=== PATIENT | male | born 2000 | race Caucasian/White ===

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

== ENCOUNTER 2019-01-09 15:44 | Emergency (ER) | payer BC ==
[2019-01-09 16:13] VITALS: BP 132/78
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
[2019-01-10 11:27] LABS: ABS Eosinophils 0.3 10^3/ul (0-0.6); ABS Lymphocytes 1.9 10^3/ul (1.0-4.8); ABS Monocytes 0.8 10^3/ul (0-0.8); ABS Neutrophils 4.7 10^3/ul (1.5-7.7); Eosinophil % 3.3 %; Hematocrit 49 % (42-52); Hemoglobin 16.7 g/dL (14.0-18.0); Lymphocyte % 24.7 %; Mean Corpuscular HGB Conc 34 g/dL (31-36); Mean Corpuscular Hemoglobin 29 pg (27-31); Mean Corpuscular Volume 86 fL (80-94); Mean Platelet Volume 8.1 fL (7.4-10.4); Nucleated Red Blood Cells % 0.1; Platelet Count 245 10^3/uL (150-450); Red Cell Distribution Width 13 % (10-15); White Blood Count 7.7 10^3/uL (3.5-10.8)
[2019-01-10 11:32] LABS: Albumin 4.8 g/dL (3.2-5.2); Calcium 9.7 mg/dL (8.6-10.3); Potassium 4.1 mmol/L (3.5-5.0); Total Bilirubin 0.9 mg/dL (0.2-1.0)
[2019-01-10 11:38] LABS: Albumin/Globulin Ratio 2.2 (1-3); BUN/Creatinine Ratio 20.2 (8-20); EGFR African American 133.2 (>60); EGFR Non-African American 110.1 (>60); Globulin 2.2 g/dL (2-4)
[2019-01-10 12:19] LABS: HIV 4th Generation Nonreactive (Nonreactive)
[2019-01-11 14:02] LABS: Hepatitis C Antibody Negative (Negative)
[2019-01-11 21:04] LABS: Trichomonas vaginalis SOURCE: Urine (Male Patient)
[2019-01-13 13:30] LABS: Chlamydia trachomatis NAA Negative (Negative); Neisseria gonorrhoeae (GC) NAA Negative (Negative)
== END 2019-01-09 17:14 | disposition home or self-care (01) ==
LOC: UCCORT 15:44
DX: R30.0 Dysuria (principal); F17.290 Nicotine dependence, other tobacco product, uncomplicated; Z70.8 Other sex counseling
CPT/HCPCS: 36415; 80053; 81003; 85025; 86780; 86803; 87389; 87491; 87591; 87661; 99211; G0463

== ENCOUNTER 2019-01-14 14:29 | Emergency (ER) | payer BC ==
[2019-01-14 15:01] VITALS: BP 126/59
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
== END 2019-01-14 16:17 | disposition home or self-care (01) ==
LOC: UCCORT 14:29
DX: R59.0 Localized enlarged lymph nodes (principal); R30.0 Dysuria; L29.0 Pruritus ani; F17.290 Nicotine dependence, other tobacco product, uncomplicated
CPT/HCPCS: 81003; 87086; 99212; G0463

== ENCOUNTER 2019-01-23 23:52 | Emergency (ER) | payer BC ==
--- NOTE | 2019-01-24 02:27 | ED ---
GI/ HPI - HPI Summary HPI Summary: 18-year-old male with no significant past medical history presents to the emergency department today complaining of testicular pain and penile itching and pain with urination 2 weeks. Patient endorses 5/10 testicular "aching pain" and burning with urination. Patient states he is in a monogamous relationship with a consistent sexual partner who is currently asymptomatic. Patient states he uses condoms and does not practice insertive anal sex. He states he otherwise feels well. He denies fever, chest pain, abdominal pain, shortness of breath, rash, penile discharge. Family history and surgical history are noncontributory. - History of Current Complaint Chief Complaint: EDUrogenitalProblems Time Seen by Provider: 01/24/19 02:18 Stated Complaint: TESTICULAR PAIN PER PT Hx Obtained From: Patient Onset/Duration: Started Days Ago Timing: Constant Severity: Moderate Current Severity: Moderate Pain Intensity: 4 Location of Pain: Groin Additional Locations for Males: Penis, Testicles Pain Characteristics: Aching, Burning, Itching Associated Signs and Symptoms: Positive: UTI Symptoms. Negative: Back Pain, Pallor, Nausea, Vomiting, Diarrhea, Fever, Hematuria, Abdominal Pain, New Sexual Partner Aggravating Factor(s): Voiding - Additional Pertinent History Primary Care Physician: [id number] - Allergy/Home Medications Allergies/Adverse Reactions: Allergies Allergy/AdvReac Type Severity Reaction Status Date / Time No Known Allergies Allergy Verified 01/23/19 23:58 PMH/Surg Hx/FS Hx/Imm Hx Endocrine/Hematology History: Denies: Hx Diabetes, Hx Thyroid Disease Cardiovascular History: Denies: Hx Hypertension, Hx Pacemaker/ICD Respiratory History: Reports: Hx Asthma - A CHILD Denies: Hx Chronic Obstructive Pulmonary Disease (COPD) GI History: Reports: Hx Gastroesophageal Reflux Disease Denies: Hx Ulcer History: Denies: Hx Renal Disease Sensory History: Reports: Hx Eye Injury - Patient states ongoing right eye, periodic blurriness, for 2 weeks Denies: Hx Contacts or Glasses, Hx Hearing Aid Opthamlomology History: Reports: Hx Eye Injury - Patient states ongoing right eye, periodic blurriness, for 2 weeks Denies: Hx Contacts or Glasses Neurological History: Reports: Hx Migraine, Hx Seizures - SINCE SEE NOTE / ABSENT SEIZURES Psychiatric History: Reports: Hx Anxiety, Hx Depression Denies: Hx Attention Deficit Hyperactivity Disorder, Hx Eating Disorder, Hx Panic Disorder, Hx Post Traumatic Stress Disorder, Hx Inpatient Treatment, Hx Community Mental Health Tx, Hx Schizophrenia, Hx Bipolar Disorder, Hx Suicide Attempt, Hx of Violent Episodes Against Others, Hx Substance Abuse - Surgical History Surgery Procedure, Year, and Place: 04/29/13 REMOVED A BB from right foot Hx Anesthesia Reactions: No Infectious Disease History: No Infectious Disease History: Reports: History Other Infectious Disease - HSV Denies: Hx Clostridium Difficile, Hx Hepatitis, Hx Human Immunodeficiency Virus (HIV), Hx of Known/Suspected MRSA, Hx Shingles, Hx Tuberculosis, Hx Known/ Suspected VRE, Hx Known/Suspected VRSA, Traveled Outside the [place] in Last 30 Days - Family History Known Family History: Positive: Cardiac Disease - grandfather, Other - SVT and hypothyroidism -- mother, Non-Contributory - Social History Alcohol Use: Occasionally Hx Substance Use: No Substance Use Type: Reports: Marijuana Substance Use Comment - Amount & Last Used: daily Hx Tobacco Use: No Smoking Status (MU): Current Every Day Smoker Type: Cigars Amount Used/How Often: one cigar a day Length of Time of Smoking/Using Tobacco: 7 yrs Have You Smoked in the Last Year: No Review of Systems Constitutional: Negative Eyes: Negative ENT: Negative Cardiovascular: Negative Respiratory: Negative Gastrointestinal: Negative Genitourinary: Negative Musculoskeletal: Negative Skin: Negative Neurological: Negative Psychological: Normal All Other Systems Reviewed And Are Negative: Yes Physical Exam Triage Information Reviewed: Yes Vital Signs On Initial Exam: Initial Vitals Temp Pulse Resp BP Pulse Ox 98.7 F 70 16 127/75 98 01/23/19 23:54 01/23/19 23:54 01/23/19 23:54 01/23/19 23:54 01/23/19 23:54 Vital Signs Reviewed: Yes Appearance: Positive: Well-Appearing, No Pain Distress, Well-Nourished Skin: Positive: Warm, Skin Color Reflects Adequate Perfusion Eyes: Positive: EOMI, JHOANA ENT: Positive: Hearing grossly normal Respiratory/Lung Sounds: Positive: Clear to Auscultation, Breath Sounds Present Cardiovascular: Positive: RRR, S1, S2 Abdomen Description: Positive: Nontender, No Organomegaly, Soft Bowel Sounds: Positive: Present Male Genital Exam: Positive: No Hernia, Epididymal Tenderness, Erythema, Urethral Discharge, Other - Exam chaperoned by Miguel Benjamin, hospital aide. Negative: Lesions Musculoskeletal: Positive: Strength/ROM Intact Neurological: Positive: Sensory/Motor Intact, Alert, Oriented to Person Place, Time, Normal Gait, Speech Normal Psychiatric: Positive: Normal AVPU Assessment: Alert Procedures - Sedation Patient Received Moderate/Deep Sedation with Procedure: No Diagnostics - Vital Signs Vital Signs Temp Pulse Resp BP Pulse Ox 01/24/19 01:15 98.4 F 76 16 134/61 98 01/23/19 23:54 98.7 F 70 16 127/75 98 - Laboratory Lab Statement: Any lab studies that have been ordered have been reviewed, and results considered in the medical decision making process. GIGU Course/Dx - Course Course Of Treatment: Patient was evaluated in the emergency department for testicular pain. Patient seen and examined. Physical exam was suggestive of epididymitis. Patient had positive cremasteric reflex. Testicular ultrasound showed no evidence of torsion and was suggestive for epididymitis. Gonorrhea and chlamydia testing as well as urinalysis were sent to laboratory for evaluation. Patient was treated empirically treated for gonorrhea and chlamydia with 250 mg of ceftriaxone and 1 g of azithromycin. Patient was told to refrain from sexual activity for 10 days and have his partner tested. - Diagnoses Differential Diagnoses - Male: Epididymitis, Testicular Torsion Bad table Discharge ED - Sign-Out/Discharge Documenting (check all that apply): Patient Departure - Discharge Plan Condition: Stable Disposition: HOME Patient Education Materials: Epididymitis (ED) Referrals: Patrick Dolan MD [Primary Care Provider] - 7 Days Additional Instructions: You were seen in the emergency department today and diagnosed with epididymitis. I am not certain what kind of bacteria is causing your symptoms however you were empirically treated in the emergency Department for gonorrhea and Chlamydia. Please refrain from sexual activity for 10 days and follow-up with your primary care doctor for further evaluation and management of symptoms. Please have your partner tested. Please return to the emergency department immediately if you develop any new or worsening symptoms. We will call you if your cultures return positive for gonorrhea and chlamydia. - Billing Disposition and Condition Condition: STABLE Disposition: Home
[2019-01-24] MEDS ORDERED: cefTRIAXone VIAL(*) 250 MG VIAL IM ONE (02:28)
[2019-01-24] MEDS ORDERED: Lidocaine 1% MPF ** 5 ML VIAL IM ONE (02:28)
[2019-01-24] MEDS ORDERED: Azithromycin TAB* 250 MG PO ONE (02:28)
[2019-01-24 02:42] LABS: Urine Appearance Clear; Urine Bilirubin Negative (Negative); Urine Blood Negative (Negative); Urine Color Yellow; Urine Glucose Negative (Negative); Urine Ketones Negative (Negative); Urine Nitrite Negative (Negative); Urine Protein Negative (Negative); Urine Specific Gravity 1.025 (1.010-1.030); Urine Urobilinogen Negative (Negative)
[2019-01-24 03:17] VITALS: BP 120/65
[2019-01-24 13:59] LABS: Chlamydia trachomatis NAA Negative (Negative); Neisseria gonorrhoeae (GC) NAA Negative (Negative)
== END 2019-01-24 03:15 | disposition home or self-care (01) ==
LOC: ED 23:52
DX: N45.1 Epididymitis (principal); K21.9 Gastro-esophageal reflux disease without esophagitis; F17.290 Nicotine dependence, other tobacco product, uncomplicated
CPT/HCPCS: 76870; 81003; 87491; 87591; 96372; 99282; A9270-GY; J0696

== ENCOUNTER 2019-02-10 08:17 | Emergency (ER) | payer BC ==
--- NOTE | 2019-02-10 08:42 | ED ---
Syncope/Near Syncope - HPI Summary HPI Summary: Patient is a 18 y/o M presenting to the ED for a chief complaint of syncope around 07:00 on 02/10/19. Patient states that he was walking to get a glass of water when he suddenly felt chest pain and had a syncopal episode. After the syncopal episode, he felt fatigued. Over the last month, patient has noticed lightheadedness, blurred vision, nausea, generalized body aches, and shortness of breath. He also describes an occasional warm sensation that starts on the bottom of his right foot up to his right calf, and a stinging sensation in his nose as if he is "about to sneeze." Patient denies nasal congestion or cough. He believes he has a sinus infection. He denies positive sick contact with anyone that has similar symptoms. He does admit a similar syncopal episode one month ago. Patient is unsure if he had an influenza vaccination this season. He denies taking any OTC medications for his symptoms. PMHx is significant for anxiety and depression. He admits marijuana use daily and alcohol use occasionally, but he denies tobacco use. Last marijuana use was on 02/09/19. 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 Allergies noted. Medications reviewed. - History Of Current Complaint Chief Complaint: EDSyncope Time Seen by Provider: 02/10/19 08:32 Hx Obtained From: Patient Onset/Duration: Sudden Onset, Resolved Timing: Weeks Context: Loss Of Consciousness Activity At Onset: At Rest Aggravating Factor(s): Nothing Alleviating Factor(s): Spontaneous Resolution Associated Signs And Symptoms: Chest Pain - Resolved, Lightheadedness, Pain - Generalized body aches, Shortness Of Breath - Allergies/Home Medications Allergies/Adverse Reactions: Allergies Allergy/AdvReac Type Severity Reaction Status Date / Time No Known Allergies Allergy Verified 02/10/19 08:22 Home Medications: Home Medications NK [No Home Medications Reported] 02/10/19 [History Confirmed 02/10/19] PMH/Surg Hx/FS Hx/Imm Hx Previously Healthy: Yes Endocrine/Hematology History: Denies: Hx Diabetes, Hx Thyroid Disease Cardiovascular History: Denies: Hx Hypertension, Hx Pacemaker/ICD Respiratory History: Reports: Hx Asthma - A CHILD Denies: Hx Chronic Obstructive Pulmonary Disease (COPD) GI History: Reports: Hx Gastroesophageal Reflux Disease Denies: Hx Ulcer History: Denies: Hx Renal Disease Sensory History: Reports: Hx Eye Injury - Patient states ongoing right eye, periodic blurriness, for 2 weeks Denies: Hx Contacts or Glasses, Hx Legally Blind, Hx Deafness, Hx Hearing Aid Opthamlomology History: Reports: Hx Eye Injury - Patient states ongoing right eye, periodic blurriness, for 2 weeks Denies: Hx Contacts or Glasses, Hx Legally Blind EENT History: Denies: Hx Deafness Neurological History: Reports: Hx Migraine, Hx Seizures - SINCE SEE NOTE / ABSENT SEIZURES Psychiatric History: Reports: Hx Anxiety, Hx Depression Denies: Hx Attention Deficit Hyperactivity Disorder, Hx Eating Disorder, Hx Panic Disorder, Hx Post Traumatic Stress Disorder, Hx Inpatient Treatment, Hx Community Mental Health Tx, Hx Schizophrenia, Hx Bipolar Disorder, Hx Suicide Attempt, Hx of Violent Episodes Against Others, Hx Substance Abuse - Surgical History Surgical History: Yes Surgery Procedure, Year, and Place: 04/29/13 REMOVED A BB from right foot Hx Anesthesia Reactions: No Infectious Disease History: No Infectious Disease History: Reports: History Other Infectious Disease - HSV Denies: Hx Clostridium Difficile, Hx Hepatitis, Hx Human Immunodeficiency Virus (HIV), Hx of Known/Suspected MRSA, Hx Shingles, Hx Tuberculosis, Hx Known/ Suspected VRE, Hx Known/Suspected VRSA, Traveled Outside the [place] in Last 30 Days - Family History Known Family History: Positive: Cardiac Disease - grandfather, Other - SVT and hypothyroidism -- mother - Social History Occupation: Employed Full-time Lives: With Family Alcohol Use: Occasionally Hx Substance Use: Yes Substance Use Type: Reports: Marijuana Substance Use Comment - Amount & Last Used: daily Hx Tobacco Use: Yes Smoking Status (MU): Former Smoker Type: Cigars Amount Used/How Often: one cigar a day Length of Time of Smoking/Using Tobacco: 7 yrs Have You Smoked in the Last Year: No Review of Systems Positive: Fatigue Positive: Blurred Vision Negative: Other - Negative nasal congestion Positive: Shortness Of Breath. Negative: Cough Positive: Nausea Positive: Myalgia - Generalized body aches Neurological: Other - Positive lightheadedness Positive: Syncope All Other Systems Reviewed And Are Negative: Yes Physical Exam - Summary Physical Exam Summary: Constitutional: Well-developed, Well-nourished, Alert. (-) Distressed Skin: Warm, Dry HENT: Normocephalic; Atraumatic. Nasal congestion. Eyes: Conjunctiva normal Neck: Musculoskeletal ROM normal neck. (-) JVD, (-) Stridor, (-) Tracheal deviation Cardio: Rhythm regular, rate normal, Heart sounds normal; Intact distal pulses. Radial pulses are 2+ and symmetric. (-) Murmur Pulmonary/Chest wall: Effort normal. (-) Respiratory distress, (-) Wheezes, (-) Rales Abd: Soft. (-) Tenderness, (-) Distension, (-) Guarding, (-) Rebound Musculoskeletal: (-) Edema Lymph: (-) Cervical adenopathy Neuro: Alert, Oriented x3, Strength normal, Cranial nerves II-XII are grossly intact. (-) Dysmetria, (-) Nystagmus, (-) Ataxia by finger to nose testing, (-) Sensory deficit. NIH Stroke Scale: 0. Psych: Mood and affect Normal Triage Information Reviewed: Yes Vital Signs On Initial Exam: Initial Vitals Temp Pulse Resp BP Pulse Ox 98.2 F 70 19 146/86 98 02/10/19 08:18 02/10/19 08:18 02/10/19 08:18 02/10/19 08:18 02/10/19 08:18 Vital Signs Reviewed: Yes Procedures - Sedation Patient Received Moderate/Deep Sedation with Procedure: No Diagnostics - Vital Signs Vital Signs Temp Pulse Resp BP Pulse Ox 02/10/19 08:18 98.2 F 70 19 146/86 98 - Laboratory Lab Statement: Any lab studies that have been ordered have been reviewed, and results considered in the medical decision making process. - Radiology Chest X-ray Radiology Interpretation Completed By: Radiologist Summary of Radiographic Findings: Chest X-ray IMPRESSION: No evidence for acute intrathoracic disease. Negative exam. Reviewed by Dr. Villagran. - EKG 08:55 Cardiac Rate: NL - 63 BPM EKG Rhythm: Sinus Rhythm ST Segment: Normal Ectopy: None Summary of EKG Findings: EKG at 08:55 shows 63 BPM with normal sinus rhythm, no STEMI. Reviewed and interpreted by Dr. Villagran. Course/Dx Course Of Treatment: Patient is here after a syncopal episode. Upon arrival, patient multiple complaints including sinus congestion, a syncopal episode, and feeling fatigued. Patient is overall well-appearing with a normal cardiac and neurologic examination. Patient had an EKG which showed no evidence of underlying arrhythmia. Patient has no family history of arrhythmia. Patient had a chest x-ray to go in for pneumomediastinum which was negative. Patient also had a negative rapid influenza. Given patient's age and overall well- being with a normal exam, patient is discharged and given PCP referral. - Diagnoses Provider Diagnoses: Nasal congestion Discharge ED - Sign-Out/Discharge Documenting (check all that apply): Patient Departure - Discharge - Discharge Plan Condition: Stable Disposition: HOME Patient Education Materials: Cold Symptoms (ED) Forms: *Work Release Referrals: Patrick Dolan MD [Primary Care Provider] - [facility] [Outside] Additional Instructions: PLEASE RETURN TO EMERGENCY DEPARTMENT FOR ANY NEW OR WORSENING SYMPTOMS. Please follow up with your primary care physician. Please make all follow-ups in 1-3 days unless I advise you otherwise. Use a Nettipot as described to you here. Buy a nasal decongestant and drink tea. - Billing Disposition and Condition Condition: STABLE Disposition: Home - Attestation Statements Document Initiated by Jeannieibe: Yes Documenting Scribe: Fanny Post Provider For Whom Jeannieibe is Documenting (Include Credential): Romulo Villagran MD Scribe Attestation: I, Fanny Post, scribed for Romulo Villagran MD on 02/10/19 at 1412. Scribe Documentation Reviewed: Yes Provider Attestation: The documentation as recorded by the Fanny bauer accurately reflects the service I personally performed and the decisions made by me, Romulo Villagran MD Status of Scribe Document: Viewed NIH Scale - NIH Scale Level of Consciousness: Alert/Keenly Responsive Ask Patient the Month and His/Her Age: Both Correct Ask Pt to Open/Close Eyes and Benefits Director/Release Non-Paretic Hand: Both Correctly Best Gaze (Only Horizontal Eye Movement): Normal Visual Field Testing: No Visual Loss Facial Paresis-Pt to Smile & Close Eyes or Grimace Symmetry: Normal/Symmetrical Motor Function - Right Arm: No Drift-Holds 10 Seconds Motor Function - Left Arm: No Drift-Holds 10 Seconds Motor Function - Right Leg: No Drift-Holds 10 Seconds Motor Function - Left Leg: No Drift-Holds 10 Seconds Limb Ataxia-Must be out of Proportion to Weakness Present: Absent Sensory (Use Pinprick to Test Arms/Legs/Trunk/Face): Normal Best Language (Describe Picture, Name Items): No Aphasia Dysarthria (Read Several Words): Normal Extinction and Inattention: No Abnormality Total Score: 0
[2019-02-10 10:00] LABS: Influenza A Molecular NEGATIVE (Negative); Influenza B Molecular NEGATIVE (Negative)
[2019-02-10 10:43] VITALS: BP 119/64
== END 2019-02-10 10:42 | disposition home or self-care (01) ==
LOC: ED 08:17
DX: R09.81 Nasal congestion (principal); R55 Syncope and collapse; R53.83 Other fatigue; R42 Dizziness and giddiness; M79.10 Myalgia, unspecified site; R06.02 Shortness of breath; Z87.891 Personal history of nicotine dependence
CPT/HCPCS: 71046; 93005; 99282

== ENCOUNTER 2019-02-23 19:33 | Emergency (ER) | payer BC ==
--- OUTSIDE RECORDS SUMMARY | 2019-02-23 19:39 | XMS REPORT | Continuity of Care Document ---
:2000 External Reference #:[id number] Author Name Emily Raphael MD Address [address] [place] [id number] Problems Active Problems Provider Date Tenderness of periumbilical region Emily Raphael MD Onset: 02/13/2019 On examination - rebound - right iliac Emily Raphael MD Onset: 02/13/2019 Syncope and collapse Emily Raphael MD Onset: 02/13/2019 Anxiety state Emily Raphael MD Onset: 02/13/2019 Gastroesophageal reflux disease Emily Raphael MD Onset: 02/13/2019 Alcohol intake - finding Emily Raphael MD Onset: 02/13/2019 Social History Type Date Description Comments Sex Unknown Allergies, Adverse Reactions, Alerts Description No Known Drug Allergies Medications Active Medications SIG Qnty Indications Ordering Date Provider Buspirone HCL 1 tab by mouth 60tabs F41.9 Emily Raphael, 02/21/2019 5mg Tablets three times a day as needed. start with one a day the first day, two on the second, then three times a day. Work your way up Clotrimazole/Betametha apply to affected 15gm B35.6 Emily Raphael, 02/21 sone Dipropionate area twice daily MD 1-0.05% for two weeks Cream Triamcinolone Dab small amount 5gm K12.0 Emily Raphael, 02/21/2019 Acetonide Dental Paste of paste on each MD mouth sore after 0.1% Paste meals and before bedtime. Omeprazole take one capsule 90caps K21.9 Emily Raphael, 02/21/2019 40mg Capsules by mouth every MD DR day for acid reflux- take 30 minutes before same meal every day History Medications Omeprazole 1 every day 30 30caps R10.815 Emily Raphael 02/13/2019 - 20mg minutes before MD Joe 02/21/[address] orellana for heartburn Immunizations Description No Information Available Vital Signs Date Vital Result Comment 02/21/2019 9:23am BP Systolic 116 mmHg BP Diastolic 68 mmHg Weight 168.00 lb 02/13/2019 10:35am BP Systolic 108 mmHg BP Diastolic 60 mmHg Height 69 inches 5'9" Weight 168.00 lb BMI (Body Mass Index) 24.8 kg/m2 Body Mass Index Percentile 73 % Results Test Acquired Date Facility Test Result H/L Range Note Rapid Influenza 02/16/2019 [facility] Influenza A NEGATIVE Negative A & B Molecular [phone] Molecular Influenza B Molecular NEGATIVE Negative 1 CBC Auto Diff 02/13/2019 [facility] White Blood 4.9 10^3/uL Normal 3.5-10.8 [phone] Count Red Blood Count 5.35 10^6/uL Normal 4.18-5.48 Hemoglobin 15.9 g/dL Normal 14.0-18.0 Hematocrit 46 % Normal 42-52 Mean Corpuscular Volume 86 fL Normal 80-94 Mean Corpuscular Hemoglobin 30 pg Normal 27-31 Mean Corpuscular HGB Conc 34 g/dL Normal 31-36 Red Cell Distribution Width 13 % Normal 10-15 Platelet Count 228 10^3/uL Normal 150-450 Mean Platelet Volume 7.4 fL Normal 7.4-10.4 Abs Neutrophils 2.6 10^3/uL Normal 1.5-7.7 Abs Lymphocytes 1.5 10^3/uL Normal 1.0-4.8 Abs Monocytes 0.4 10^3/uL Normal 0-0.8 Abs Eosinophils 0.2 10^3/uL Normal 0-0.6 Abs Basophils 0.1 10^3/uL Normal 0-0.2 Abs Nucleated RBC 0.0 10^3/uL Granulocyte % 54.0 % Lymphocyte % 31.0 % Monocyte % 8.6 % Eosinophil % 5.1 % Basophil % 1.3 % Nucleated Red Blood Cells % 0.1 Comp Metabolic Panel 02/13/2019 [facility] Sodium 139 mmol/L Normal 135-145 [phone] Potassium 4.3 mmol/L Normal 3.5-5.0 Chloride 105 mmol/L Normal 101-111 Co2 Carbon Dioxide 28 mmol/L Normal 22-32 Anion Gap 6 mmol/L Normal 2-11 Glucose 93 mg/dL Normal 70-100 Blood Urea Nitrogen 21 mg/dL Normal 6-24 Creatinine 0.98 mg/dL Normal 0.67-1.17 BUN/Creatinine Ratio 21.4 High 8-20 Calcium 9.6 mg/dL Normal 8.6-10.3 Total Protein 6.8 g/dL Normal 6.4-8.9 Albumin 4.7 g/dL Normal 3.2-5.2 Globulin 2.1 g/dL Normal 2-4 Albumin/Globulin Ratio 2.2 Normal 1-3 Total Bilirubin 1.00 mg/dL Normal 0.2-1.0 Alkaline Phosphatase 66 U/L Normal 34-104 Alt 41 U/L Normal 7-52 Ast 27 U/L Normal 13-39 Egfr Non- 98.5 >60 Egfr 119.2 >60 2 Laboratory test 02/13/2019 [facility] TSH (Thyroid 1.00 mcIU/mL Normal 0.34-5.60 finding [phone] Stim [facility]) Vitamin D Total 25(Oh) 24.6 ng/mL Normal 20-50 3 Vitamin B12 312 pg/mL Normal 180-914 4 1 Carton Stenciler: [id number] 2 Because ethnic data is not always readily available, this report includes an eGFR for both -Americans and non- Americans. The National Kidney Disease Education Program (NKDEP) does not endorse the use of the MDRD equation for patients that are not between the ages of 18 and 70, are , have extremes of body size, muscle mass, or nutritional status, or are non- or non-. According to the National Kidney Foundation, irrespective of diagnosis, the stage of the disease is based on the level of kidney function: Stage Description GFR(mL/min/1.73 m(2)) 1 Kidney damage with normal or decreased GFR 90 2 Kidney damage with mild decrease in GFR 60-89 3 Moderate decrease in GFR 30-59 4 Severe decrease in GFR 15-29 5 Kidney failure <15 (or dialysis) 3 Total 25-Hydroxyvitamin D2 and D3 (25-OH-VitD) <10 ng/mL (severe deficiency) 10-19 ng/mL (mild to moderate deficiency) 20-50 ng/mL (optimum levels) 51-80 ng/mL (increased risk of hypercalciuria) >80 ng/mL (toxicity possible) 4 Normal Range 180 to 914 Indeterminate Range 145 to 180 Deficient Range <145 Procedures Description No Information Available Medical Devices Description No Information Available Encounters Type Date Location Provider Dx Diagnosis Office Visit 02/13/2019 Main Office Emily Raphael, K21.9 Gastro- esophageal 10:30a MD reflux disease without esophagitis R10.815 Periumbilic abdominal tenderness R10.813 Right lower quadrant abdominal tenderness R55 Syncope and collapse F41.9 Anxiety disorder, unspecified F10.10 Alcohol abuse, uncomplicated Z68.24 Body mass index (BMI) 24.0-24.9, adult Assessments Date Code Description Provider 02/21/2019 K21.9 Gastro-esophageal reflux disease without Emily Raphael MD esophagitis 02/21/2019 F10.10 Alcohol abuse, uncomplicated Emily Raphael MD 02/21/2019 F41.9 Anxiety disorder, unspecified Emily Raphael MD 02/21/2019 B35.6 Tinea cruris Emily Raphael MD 02/21/2019 K12.0 Recurrent oral aphthae Emily Raphael MD 02/13/2019 K21.9 Gastro-esophageal reflux disease without Emily Raphael MD esophagitis 02/13/2019 R10.815 Periumbilic abdominal tenderness Emily Raphael MD 02/13/2019 R10.813 Right lower quadrant abdominal tenderness Emily Raphael MD 02/13/2019 R55 Syncope and collapse Emily Raphael MD 02/13/2019 F41.9 Anxiety disorder, unspecified Emily Raphael MD 02/13/2019 F10.10 Alcohol abuse, uncomplicated Emily Raphael MD 02/13/2019 Z68.24 Body mass index (BMI) 24.0-24.9, adult Emily Raphael MD Plan of Treatment 02/21/2019 - Emily Raphael MDK21.9 Gastro-esophageal reflux disease without esophagitisNew Medication:Omeprazole 40 mg - take one capsule by mouth every day for acid reflux- take 30 minutes before same meal every dayReferral:[facility], GastroenterologyFollow up:will increase omeprazole from 20mg daily to 40 mg daily and refer to GI in [place] for essmgibdwB58.10 Alcohol abuse, obglgpnpofgyhV26.9 Anxiety disorder, unspecifiedNew Medication: Buspirone HCL 5 mg - 1 tab by mouth three times a day as needed. start with one a day the first day,two on the second, then three times a day. Work your way upFollow up:f/u 2 weeks.B35.6 Tinea crurisNew Medication:Clotrimazole/ Betamethasone Dipropionate 1-0.05 % - apply to affected area twice daily for two vesixB57.0 Recurrent oral aphthaeNew Medication:Triamcinolone Acetonide Dental Paste 0.1 % - Dab small amount of paste on each mouth sore after meals and before bedtime. Functional Status Description No Information Available Mental Status Description No Information Available Referrals Refer to Reason for Referral Status Appt Date [facility] chronic GERD, nausea, diarrhea, abdominal Created [address] pain [address] [place] [address] [phone]
--- OUTSIDE RECORDS SUMMARY | 2019-02-23 19:39 | XMS REPORT | Continuity of Care Document ---
:1999 External Reference #:[id number] Author Name Emily Raphael MD Address [address] [place] [id number] Problems Active Problems Provider Date Tenderness of [...] History Type Date Description Comments Sex Unknown Tobacco Use Start: Unknown End: Former Cigarette Smoker Unknown ETOH Use Denies alcohol use quit January 2019 Tobacco Use Start: Unknown End: Patient is a former quit January 2019 smoker Recreational Drug Use Denies Drug Use Recreational Drug Use Cannabis Quit cannabis January 2019 Smoking Status Reviewed: 02/22/19 Patient is a former quit January 2019 smoker Allergies, Adverse Reactions, Alerts Description No Known [...] Raphael, 02/21 sone Dipropionate area twice daily 1-0.05% for two weeks Cream Triamcinolone Dab [...] minutes before MD Joe 02/21/[address] esteban for heartburn Immunizations CPT Code Status Date Vaccine Lot # [id number] Given 02/21/2019 Influenza Virus Vaccine, Quadrivalent, Split, Preservative Free Vital Signs Date Vital Result Comment 02/21/2019 9:23am BP Systolic 116 mmHg BP Diastolic 68 mmHg Weight 168.00 lb 02/13/2019 10:35am BP Systolic 108 mmHg BP Diastolic 60 mmHg Height 69 inches 5'9" Weight 168.00 lb BMI (Body Mass Index) 24.8 kg/m2 Body Mass Index Percentile 73 % Results Test Acquired Date Facility Test Result H/L Range Note Rapid Influenza 02/16/2019 [facility] Influenza A NEGATIVE Negative A & B Molecular [phone] Molecular Influenza B Molecular NEGATIVE Negative 1 CBC Auto Diff 02/13/2019 [facility] White Blood 4.9 10^3/uL Normal 3.5-10.8 [phone] Count Red Blood Count 5.35 10^6/uL Normal [...] Cells % 0.1 Comp Metabolic Panel 02/13/2019 [facility] Sodium 139 mmol/L Normal 135-145 [phone] Potassium 4.3 mmol/L Normal 3.5-5.0 Chloride 105 [...] Egfr 119.2 >60 2 Laboratory test 02/13/2019 [facility] TSH (Thyroid 1.00 mcIU/mL Normal 0.34-5.60 finding [phone] Stim [facility]) Vitamin D Total 25(Oh) 24.6 ng/mL Normal 20-50 3 Vitamin B12 312 pg/mL Normal 180-914 4 1 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: [id number] 2 Because ethnic data is not always [...] Office Emily Raphael, K21.9 Gastro- esophageal 10:30a reflux disease without esophagitis R10.815 Periumbilic abdominal [...] K12.0 Recurrent oral aphthae Emily Raphael MD 02/21/2019 Z23 Encounter for immunization Emily Raphael MD 02/13/2019 K21.9 Gastro-esophageal reflux [...] adult Emily Raphael MD Plan of Treatment Future Appointment(s):03/07/2019 9:30 am - Emily Raphael MD at [id number] - Emily Raphael MDK21.9 Gastro-esophageal reflux disease without esophagitisNew Medication:Omeprazole 40 mg - take one capsule by mouth every day for acid reflux- take 30 minutes before same meal every dayReferral:[facility], GastroenterologyFollow up:will increase omeprazole from 20mg daily to 40 mg daily and refer to GI in [place] for ozjlrmfgnN21.10 Alcohol abuse, saecsvrdhoecaG02.9 Anxiety disorder, unspecifiedNew Medication: Buspirone HCL 5 mg - 1 tab by mouth three times a day as needed. start with one a day the first day,two on the second, then three times a day. Work your way upFollow up:f/u 2 weeks.B35.6 Tinea crurisNew Medication:Clotrimazole/ Betamethasone Dipropionate 1-0.05 % - apply to affected area twice daily for two gyhehC88.0 Recurrent oral aphthaeNew Medication:Triamcinolone Acetonide Dental Paste 0.1 % - Dab small amount of paste on each mouth sore after meals and before bedtime.Z23 Encounter for immunization Functional Status Description No Information Available Mental Status Description No Information Available Referrals Refer to Reason for Referral Status Appt Date [facility] chronic GERD, nausea, diarrhea, abdominal Created 00 / pain [address] [place] [address] [phone]
[2019-02-23 19:48] VITALS: BP 138/80
--- NOTE | 2019-02-23 19:49 | UC ---
Hand/Wrist HPI - HPI Summary HPI Summary: Punched his car a few times over the past several weeks. Put a box on the hand tonight and had immediate swelling. H/O punching out a car window requiring stitches. - History Of Current Complaint Stated Complaint: RT HAND INJURY Hx Obtained From: Patient Onset/Duration: Sudden Onset, Lasting Weeks - 2, Worse Since - today Severity Initially: Moderate Severity Currently: Moderate Character Of Pain: Dull, Aching Aggravating Factor(s): Movement, Lifting, Flexion Alleviating Factor(s): Rest Associated Signs And Symptoms: Positive: Swelling, Bruising Related History: Dominant Hand Right - Allergies/Home Medications Allergies/Adverse Reactions: Allergies Allergy/AdvReac Type Severity Reaction Status Date / Time No Known Allergies Allergy Verified 02/23/19 19:40 PMH/Surg Hx/FS Hx/Imm Hx Previously Healthy: Yes - Surgical History Surgical History: Yes Surgery Procedure, Year, and Place: 04/29/13 REMOVED A BB from right foot - Family History Known Family History: Positive: Cardiac Disease - grandfather, Diabetes, Other - SVT and hypothyroidism -- mother - Social History Occupation: Employed Full-time Lives: With Family Alcohol Use: None Substance Use Type: None Substance Use Comment - Amount & Last Used: daily Smoking Status (MU): Former Smoker Type: Cigars Amount Used/How Often: one cigar a day Length of Time of Smoking/Using Tobacco: 7 yrs Have You Smoked in the Last Year: No Household Exposure Type: Cigarettes - Immunization History Most Recent Influenza Vaccination: 12/26/17 Most Recent Pneumonia Vaccination: NA Vaccination Up to Date: Yes Review of Systems All Other Systems Reviewed And Are Negative: Yes Skin: Positive: Bruising - right hand Musculoskeletal: Positive: Arthralgia - right hand Psychological: Positive: Depressed Physical Exam Triage Information Reviewed: Yes Appearance: Well-Appearing, Well-Nourished, Pain Distress - mild Vital Signs Reviewed: Yes Eyes: Positive: Conjunctiva Clear ENT: Positive: Pharynx normal, Nasal congestion - allergic changes, TMs normal Neck exam: Normal Respiratory Exam: Normal Cardiovascular Exam: Normal Male Genital Exam: Positive: Normal Genitalia, Other - mild erythema over the distal scrotum and inguinal crease on the left side. 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 Neurological Exam: Normal Psychological Exam: Normal Skin Exam: Normal Hand/Wrist Course/Dx - Differential Dx/Diagnosis Differential Diagnosis/HQI/PQRI: Contusion, Fracture, Tendonitis, Tenosynovitis Provider Diagnosis: Contusion of right hand, Allergic rhinitis, Tinea cruris Discharge ED - Sign-Out/Discharge Documenting (check all that apply): Patient Departure All imaging exams completed and their final reports reviewed: No - Discharge Plan Condition: Stable Disposition: HOME Prescriptions: Ketoconazole 2 % CREAM (NF) [Nizoral 2% CREAM (NF)] 1 applic TOPICAL BID #30 gm Montelukast Sodium TAB* [Singulair TAB*] 10 mg PO BEDTIME #30 tab Triamcinolone 0.1% CREAM (NF) [Kenalog 0.1% Cream (NF)] 1 applic TOPICAL BID PRN #30 gm PRN Reason: Itching Patient Education Materials: Contusion in Adults (ED), Jock Itch (ED), Allergies (ED) Referrals: Emily Raphael MD [Primary Care Provider] - 4 Days (follow up for medication for depression. Consider fluoxetine.) - Billing Disposition and Condition Condition: STABLE Disposition: Home
--- NOTE | 2019-02-24 08:55 | UC ---
- Progress Note Progress Note: Final radiologist reading of right hand x-ray from February 23, 2019 comes back as no fracture. There is no interpretation of the x-ray by the provider of the same date. However the diagnosis by the provider is hand contusion therefore there is no discrepancy. Course/Dx - Diagnoses Provider Diagnoses: Contusion of right hand, Allergic rhinitis, Tinea cruris Discharge ED - Sign-Out/Discharge Documenting (check all that apply): Patient Departure All imaging exams completed and their final reports reviewed: Yes - Discharge Plan Condition: Stable Disposition: HOME Prescriptions: Ketoconazole 2 % CREAM (NF) [Nizoral 2% CREAM (NF)] 1 applic TOPICAL BID #30 gm Montelukast Sodium TAB* [Singulair TAB*] 10 mg PO BEDTIME #30 tab Triamcinolone 0.1% CREAM (NF) [Kenalog 0.1% Cream (NF)] 1 applic TOPICAL BID PRN #30 gm PRN Reason: Itching Patient Education Materials: Contusion in Adults (ED), Allergies (ED), Jock Itch (ED) Referrals: Emily Raphael MD [Primary Care Provider] - 4 Days (follow up for medication for depression. Consider fluoxetine.) - Billing Disposition and Condition Condition: STABLE Disposition: Home
== END 2019-02-23 20:18 | disposition home or self-care (01) ==
LOC: UCCORT 19:33
DX: S60.221A Contusion of right hand, initial encounter (principal); J30.9 Allergic rhinitis, unspecified; B35.6 Tinea cruris; Z87.891 Personal history of nicotine dependence; W20.8XXA Other cause of strike by thrown, projected or falling object, initial encounter; Y92.9 Unspecified place or not applicable
CPT/HCPCS: 99212; G0463

== ENCOUNTER 2019-03-16 09:10 | Emergency (ER) | payer BC ==
--- OUTSIDE RECORDS SUMMARY | 2019-03-16 09:37 | XMS REPORT | Continuity of Care Document ---
:2000 External Reference #:[id number] Author Name Emily Raphael MD Address [address] [place] [address] Problems Active Problems Provider Date Tenderness of [...] Quit cannabis January 2019 Smoking Status Reviewed: 03/13/19 Patient is a former quit January 2019 [...] Joe 02/21/[address] esteban for heartburn Medications Administered in Office Medication SIG Qnty Indications Ordering Provider Date H1N1 Swine Flu Vaccine Unknown 01/18/2009 Injection Immunizations CPT Code Status Date Vaccine Lot # [id number] Given 02/21/2019 Influenza Virus Vaccine, Quadrivalent, Split, [id number] Preservative Free 79023 Given 12/26/2018 Influenza Virus Vaccine, Quadrivalent, Split, Preservative Free 54028 Given 12/26/2018 Gardasil 9 HPV vaccine; Nonavalent [address] [place] [address] Given 12/26/2017 Influenza Virus Vaccine, Quadrivalent, Split, Preservative Free 14975 Given 11/28/2016 Influenza Virus Vaccine, Quadrivalent, Split, Preservative Free 37662 Given 01/24/2016 Menomune Meningococcal Immunization 62669 Given 01/24/2016 Influenza Virus Vaccine, Quadrivalent, Split, Preservative Free 97748 Given 01/24/2016 Gardasil 9 HPV vaccine; Nonavalent 3 [place] [address] Given 01/21/2015 flu mist - live influenza virus vaccine for intranasal use 79980 Given 04/16/2013 Adacel or Boostrix, TDaP 01779 Given 09/29/2011 Varicella (Chicken Pox) Immunization 55567 Given 09/29/2011 Adacel or Boostrix, TDaP 30765 Given 11/23/2007 Flu, Split Virus 3Yrs 51491 Given 08/23/2007 Menactra Menningitis Vaccine 13874 Given 08/23/2007 Hep A, Ped/Adolscent, 2 Dose 56533 Given 07/12/2006 Hep A, Ped/Adolscent, 2 Dose 17625 Given 01/12/2006 Flu, Split Virus 3Yrs 27876 Given 03/03/2005 Flu, Split Virus 3Yrs 15953 Given 10/12/2004 Dtap Immunization (Tripedia) (Infanrix) 31229 Given 10/12/2004 MMR Virus Immunization 51012 Given 10/12/2004 Poliomyelitis Immunization 65800 Given 01/18/2004 Flu, Split Virus 3Yrs 93704 Given 02/09/2003 Flu, Split Virus 3Yrs 24006 Given 12/30/2002 Flu, Split Virus 3Yrs 12765 Given 10/22/2001 Hepb-Hib 27232 Given 10/22/2001 Dtap Immunization (Tripedia) (Infanrix) 38764 Given 03/05/2001 Varicella (Chicken Pox) Immunization 96225 Given 03/05/2001 Poliomyelitis Immunization 00074 Given 03/05/2001 MMR Virus Immunization 51808 Given 08/03/2000 Prevnar (Pneumococcal Conjugate) 54406 Given 08/03/2000 Dtap Immunization (Tripedia) (Infanrix) 85383 Given 04/24/2000 Hepb-Hib 07144 Given 04/24/2000 Poliomyelitis Immunization 98113 Given 04/24/2000 Dtap Immunization (Tripedia) (Infanrix) 30395 Given 04/24/2000 Prevnar (Pneumococcal Conjugate) 14437 Given 01/02/2000 Hepb-Hib 98537 Given 01/02/2000 Poliomyelitis Immunization 00348 Given 01/02/2000 Dtap Immunization (Tripedia) (Infanrix) 77105 Given 01/02/2000 Prevnar (Pneumococcal Conjugate) Vital Signs Date Vital Result Comment 03/13/2019 9:22am BP Systolic 114 mmHg BP Diastolic 70 mmHg Body Temperature 98.1 F 02/21/2019 9:23am BP Systolic 116 mmHg BP Diastolic 68 mmHg Weight 168.00 lb Results Test Acquired Date Facility Test Result H/L Range Note GC/Chlamydia 02/27/2019 [facility] GCCHL Disclaimer (SEE NOTE) 1, 2 Amplified Rna [phone] Chlamydia trachomatis Leeann Negative Negative Neisseria gonorrhoeae (GC) Leeann Negative Negative Urine Culture And 02/27/2019 [facility] Urine Culture SEE RESULT 3 Sensitivities [phone] BELOW Poc Urinalysis 02/27/2019 [facility] Poc Glucose, NEGATIVE Negative [phone] Urine Poc Bilirubin, Urine NEGATIVE Negative Poc Ketone, Urine NEGATIVE Negative Poc Specific [place], Urine 1.025 Normal 1.010-1.030 Poc Blood, Urine NEGATIVE Negative 4 Poc pH, Urine 5.5 Normal 5-9 Poc Protein, Urine NEGATIVE Negative Poc Urobilinogen, Urine 0.2 Negative Poc Nitrite, Urine POSITIVE Negative Poc Leukocytes, Urine NEGATIVE Negative Poc Color, Urine YELLOW Poc Clarity, Urine CLEAR Rapid Influenza A 02/16/2019 [facility] Influenza A NEGATIVE Negative & B Molecular [phone] Molecular Influenza B Molecular NEGATIVE Negative 5 CBC Auto Diff 02/13/2019 [facility] White Blood 4.9 10^3/uL Normal 3.5-10.8 [phone] Count Red Blood Count 5.35 10^6/uL Normal [...] Cells % 0.1 Comp Metabolic Panel 02/13/2019 [facility] Sodium 139 mmol/L Normal 135-145 [phone] Potassium 4.3 mmol/L Normal 3.5-5.0 Chloride 105 [...] Egfr Non- 98.5 >60 Egfr 119.2 >60 6 Laboratory test 02/13/2019 [facility] TSH (Thyroid 1.00 mcIU/mL Normal 0.34-5.60 finding [phone] Stim Horm) Vitamin D Total 25(Oh) 24.6 ng/mL Normal 20-50 7 Vitamin B12 312 pg/mL Normal 180-914 8 1 [id number] 2 As with all diagnostic procedures, the laboratory results obtained should be used in conjunction with other clinical information available to the physician, including confirmation by another method, as applicable. 3 SEE RESULT BELOW Name: LUIS ALBERTO HSU : [address]: Azael Floyd MD Acct: [id number] Unit: [id number] AGE: 18 Location: [facility] Re02/27/19 SEX: M Status: DEP ER SPEC: [id number] CARLOS: 02/27/19-[address] [facility] DR: Azael Floyd MD REQ: [id number] RECD: 02/27/19-551 STATUS: COMP [facility] DR: Emily Raphael MD _ SOURCE: URINE SPDESC: ORDERED: Urine Culture Procedure Result Reported Site Urine Culture Final 02/28/19- 1503 ML No Growth (<1,000 CFU/mL) * ML - Main Lab . END OF REPORT DEPARTMENT OF PATHOLOGY, [address] [place] [address] Marcus Hernandez M.D. Director [facility] # [id number] 4 Radiocommunications Technician: [id number] 5 Radiocommunications Technician: [id number] 6 Because ethnic data is not always readily [...] 15-29 5 Kidney failure <15 (or dialysis) 7 Total 25-Hydroxyvitamin D2 and D3 (25-OH-VitD) <10 ng/mL (severe deficiency) 10-19 ng/mL (mild to moderate deficiency) 20-50 ng/mL (optimum levels) 51-80 ng/mL (increased risk of hypercalciuria) >80 ng/mL (toxicity possible) 8 Normal Range 180 to 914 Indeterminate Range 145 to 180 Deficient Range <145 Procedures Description No Information Available Medical Devices Description No Information Available Encounters Type Date Location Provider Dx Diagnosis Office Visit 03/13/2019 Main Office Emily Raphael F41.9 Anxiety disorder, 9:45a unspecified J02.9 Acute pharyngitis, unspecified N48.89 Other specified disorders of penis Office Visit 02/21/2019 9:15a Main Office Emily Raphael K21.9 Gastro- esophageal MD Joe reflux disease without esophagitis F10.10 Alcohol abuse, uncomplicated F41.9 Anxiety disorder, unspecified B35.6 Tinea cruris K12.0 Recurrent oral aphthae Z23 Encounter for immunization F17.213 Nicotine dependence, cigarettes, with withdrawal Office Visit 02/13/2019 10:30a Main Office Emily Raphael K21.9 Bhavin esophageal MD Joe reflux disease without esophagitis R10.815 Periumbilic abdominal tenderness R10.813 Right lower quadrant abdominal tenderness R55 Syncope and collapse F41.9 Anxiety disorder, unspecified F10.10 Alcohol abuse, uncomplicated Z68.24 Body mass index (BMI) 24.0-24.9, adult Assessments Date Code Description Provider 03/13/2019 F41.9 Anxiety disorder, unspecified Emily Raphael MD 03/13/2019 J02.9 Acute pharyngitis, unspecified Emily Raphael MD 03/13/2019 N48.89 Other specified disorders of penis Emily Raphael MD 02/21/2019 K21.9 Gastro-esophageal reflux disease without Emily Raphael MD esophagitis 02/21/2019 F10.10 Alcohol abuse, uncomplicated Emily Raphael MD 02/21/2019 F41.9 Anxiety disorder, unspecified Emily Raphael MD 02/21/2019 B35.6 Tinea cruris Emily Raphael MD 02/21/2019 K12.0 Recurrent oral aphthae Emily Raphael MD 02/21/2019 Z23 Encounter for immunization Emily Raphael MD 02/21/2019 F17.213 Nicotine dependence, cigarettes, with Emily Raphael MD withdrawal 02/13/2019 K21.9 Gastro-esophageal reflux disease without Emily [...] Emily Raphael MD Plan of Treatment Future Appointment(s):03/20/2019 9:45 am - Emily Raphael MD at Main [id number] - Emily Raphael MDF41.9 Anxiety disorder, unspecifiedComments: improving with buspirone, only taking 5mg bid, will increase to 5mg tid. No longer drinking alcohol and only smoked marijuana once since quitting since last visit. Will address sleep issues next nmaaoN57.9 Acute pharyngitis, unspecifiedComments:negative swab, likely viral, will send culture, no abx at this time, says immune system is "weak" since having mononucleosis six months ago.N48.89 Other specified disorders of penisComments:has been having penile pain and other penile complaints for some time now,has recently tested negative for GCC, will refer to urology Functional Status Description No Information Available Mental Status Description No Information Available Referrals Refer to Reason for Referral Status Appt Date [facility] chronic GERD, nausea, diarrhea, abdominal Sent 00 /0000 pain Consult and Treat [facility] [place] [address] [phone]
[2019-03-16 10:08] VITALS: BP 131/70
--- NOTE | 2019-03-16 11:13 | UC ---
General HPI - HPI Summary HPI Summary: Pt presents with c/o sudden onset of ST, also c/o dysuria. Pt has known hx of HSV2 but denies every having "sores" He states he usually only has pain with urination when he thinks he may have active HSV2. Pt denies any risk for STD but is sexually active - History of Current Complaint Chief Complaint: UCRespiratory Stated Complaint: SORE THROAT Time Seen by Provider: 03/16/19 10:36 Hx Obtained From: Patient Onset/Duration: Sudden Onset, Lasting Days, Still Present Timing: Constant Onset Severity: Moderate Current Severity: Moderate Pain Intensity: 9 - Allergy/Home Medications Allergies/Adverse Reactions: Allergies Allergy/AdvReac Type Severity Reaction Status Date / Time No Known Allergies Allergy Verified 03/16/19 10:03 PMH/Surg Hx/FS Hx/Imm Hx Previously Healthy: Yes GI/ History: Other - hsv2 - Surgical History Surgical History: Yes Surgery Procedure, Year, and Place: 04/29/13 REMOVED A BB from right foot - Family History Known Family History: Positive: Cardiac Disease - grandfather, Diabetes, Other - SVT and hypothyroidism -- mother - Social History Occupation: Employed Full-time Lives: With Family Alcohol Use: None Substance Use Type: None Substance Use Comment - Amount & Last Used: daily Smoking Status (MU): Former Smoker Type: Cigars Amount Used/How Often: one cigar a day Length of Time of Smoking/Using Tobacco: 7 yrs Have You Smoked in the Last Year: Yes When Did the Patient Quit Smoking/Using Tobacco: 2 months ago Household Exposure Type: Cigarettes - Immunization History Most Recent Influenza Vaccination: 12/26/17 Most Recent Pneumonia Vaccination: NA Vaccination Up to Date: Yes Review of Systems All Other Systems Reviewed And Are Negative: Yes Constitutional: Positive: Fatigue Skin: Positive: Negative Eyes: Positive: Negative ENT: Positive: Sore Throat Respiratory: Positive: Negative Cardiovascular: Positive: Negative Gastrointestinal: Positive: Negative Genitourinary: Positive: Dysuria, Vaginal/Penile Pain Motor: Positive: Negative Neurovascular: Positive: Negative Musculoskeletal: Positive: Negative Neurological: Positive: Negative Psychological: Positive: Negative Is Patient Immunocompromised?: No Physical Exam Triage Information Reviewed: Yes Appearance: Well-Appearing Vital Signs: Initial Vital Signs Temp 98.3 F 03/16/19 10:04 Pulse 98 02/09/20 10:04 Resp 15 03/16/19 10:04 BP 131/70 03/16/19 10:04 Pulse Ox 99 03/16/19 10:04 Vital Signs Reviewed: Yes Eye Exam: Normal ENT: Positive: Pharyngeal erythema Dental Exam: Normal Neck exam: Normal Respiratory Exam: Normal Respiratory: Positive: Normal breath sounds Cardiovascular Exam: Normal Abdominal Exam: Normal Male Genital Exam: Positive: Other - pt denies any abdnomarl pain, swelling, mass in scrotum, or testicular area. Pt sdenies pain with BM, denies lesions, sores or discharge. Musculoskeletal Exam: Normal Neurological Exam: Normal Psychological Exam: Normal Skin Exam: Normal Course/Dx - Differential Dx - Multi-Symptom Differential Diagnoses: Urinary Tract Infection, Other - std, sore throat - Diagnoses Provider Diagnosis: Sore throat (viral), Dysuria Discharge ED - Sign-Out/Discharge Documenting (check all that apply): Patient Departure All imaging exams completed and their final reports reviewed: No Studies - Discharge Plan Condition: Stable Disposition: HOME Prescriptions: Cephalexin CAP* [Keflex 500 CAP*] 500 mg PO Q8H #30 cap predniSONE 10 mg TAB [Deltasone 10 MG TAB*] 30 mg PO DAILY #12 tab Patient Education Materials: Pharyngitis (ED), Dysuria (ED) Referrals: Emily Raphael MD [Primary Care Provider] - As Soon As Possible Additional Instructions: Please follow up with your PCP as scheduled. Please note that if your symptoms do not improve, please seek care at the closest healthcare facility as needed. Please remember to review with your PCP your reason for visit at our Urgent Care. - Billing Disposition and Condition Condition: STABLE Disposition: Home
[2019-03-17 15:09] LABS: Chlamydia trachomatis NAA Negative (Negative); Neisseria gonorrhoeae (GC) NAA Negative (Negative)
== END 2019-03-16 10:57 | disposition home or self-care (01) ==
LOC: UCCORT 09:10
DX: J02.8 Acute pharyngitis due to other specified organisms (principal); R30.0 Dysuria; Z87.891 Personal history of nicotine dependence
CPT/HCPCS: 81003; 87070; 87491; 87591; 87651; 99212; G0463

== ENCOUNTER 2019-03-19 10:58 | Emergency (ER) | payer BC ==
[2019-03-19 11:38] VITALS: BP 133/76
--- NOTE | 2019-03-19 12:26 | UC ---
Complaint Male HPI - HPI Summary HPI Summary: PATIENT COMES IN COMPLAINING OF SEVERAL MONTHS OF BLADDER PAIN. STATES HE SOMETIMES WILL HAVE DIFFICULTY STARTING HIS FLOW OF URINE AND THEN WILL GET SHOOTING, STABBING PAINS IN HIS RECTUM. HE DENIES ANY FEVER. NO NAUSEA. HE IS NOT AT ALL CONCERNED ABOUT STDS. HAS BEEN WITH HIS GIRLFRIEND FOR 7 MONTHS. USES PROTECTION EVERY TIME AND STATES THEY BOTH GET TESTED REGULARLY. HE IS ALSO COMPLAINING OF A CHRONIC RASH ON HIS SCROTUM. STATES HE NOTICES IT GETS WORSE WHEN HE WORKS OUT. STATES HE USED KETOCONAZOLE IN THE PAST WITH GOOD EFFECT. - History of Current Complaint Chief Complaint: UCGU Stated Complaint: PERSONAL Time Seen by Provider: 03/19/19 11:32 Hx Obtained From: Patient Onset/Duration: Still Present Severity Initially: Moderate Severity Currently: Moderate Pain Intensity: 3 Pain Scale Used: 0-10 Numeric Character: Sharp Aggravating Factor(s): Voiding Alleviating Factor(s): Nothing Associated Signs And Symptoms: Positive: Back Pain, Rectal Pain. Negative: Fever, Hematuria, Dysuria, Penile Swelling, Penile Discharge - Allergies/Home Medications Allergies/Adverse Reactions: Allergies Allergy/AdvReac Type Severity Reaction Status Date / Time No Known Allergies Allergy Verified 03/19/19 11:39 PMH/Surg Hx/FS Hx/Imm Hx Respiratory History: Asthma GI/ History: Gastroesophageal Reflux Psychological History: Anxiety, Depression - Surgical History Surgical History: Yes Surgery Procedure, Year, and Place: 04/29/13 REMOVED A BB from right foot - Family History Known Family History: Positive: Cardiac Disease - grandfather, Diabetes, Other - SVT and hypothyroidism -- mother - Social History Alcohol Use: Rare Substance Use Type: None Substance Use Comment - Amount & Last Used: daily Smoking Status (MU): Former Smoker Type: Cigars Amount Used/How Often: one cigar a day Length of Time of Smoking/Using Tobacco: 7 yrs Have You Smoked in the Last Year: Yes When Did the Patient Quit Smoking/Using Tobacco: 2 months ago Household Exposure Type: Cigarettes - Immunization History Most Recent Influenza Vaccination: 12/26/17 Most Recent Pneumonia Vaccination: NA Vaccination Up to Date: Yes Review of Systems All Other Systems Reviewed And Are Negative: Yes Constitutional: Positive: Negative Skin: Positive: Rash Respiratory: Positive: Negative Cardiovascular: Positive: Negative Gastrointestinal: Positive: Negative Genitourinary: Positive: Other - RECTAL PAIN, "BLADDER PAIN" Physical Exam Triage Information Reviewed: Yes Appearance: Well-Appearing, No Pain Distress, Well-Nourished Vital Signs: Initial Vital Signs Temp 98.5 F 03/19/19 11:29 Pulse 66 03/19/19 11:29 Resp 18 03/19/19 11:29 BP 133/76 03/19/19 11:29 Pulse Ox 100 03/19/19 11:29 Laboratory Tests 03/19/19 11:57 POC Urine Color Yellow POC Urine Clarity Clear POC Urine pH 6.5 POC Ur Specif [place] 1.025 POC Urine Protein Negative POC Ur Glucose (UA) Negative POC Urine Ketones Negative POC Urine Blood Negative POC Urine Nitrite Negative POC Urine Bilirubin Negative POC Urine Urobilinogen 0.2 POC U Leukocyte Esteras Negative Vital Signs Reviewed: Yes Eyes: Positive: Conjunctiva Clear ENT: Positive: Hearing grossly normal Neck: Positive: Supple Respiratory: Positive: No respiratory distress, No accessory muscle use Cardiovascular: Positive: Pulses Normal Abdomen Description: Positive: Soft Musculoskeletal: Positive: No Edema Neurological: Positive: Alert Psychological: Positive: Age Appropriate Behavior Skin: Negative: Rashes UC Physical Exam Vital Signs On Initial Exam: Initial Vitals Temp Pulse Resp BP Pulse Ox 98.5 F 66 18 133/76 100 03/19/19 11:29 03/19/19 11:29 03/19/19 11:29 03/19/19 11:29 03/19/19 11:29 - Rectal Exam Rectal Exam: Normal Rectal Tone Prostate Exam: Normal Complaint Male Course/Dx - Course Course Of Treatment: PATIENT'S PRESENTATION IS NOT ENTIRELY CONSISTENT WITH PROSTATITIS HOWEVER GIVEN HIS SYMPTOMS WILL GO AHEAD AND COVER WITH BACTRIM. PATIENT IS ADAMANT THAT HE DOES NOT HAVE AN STD AND DOES NOT FEEL HE NEEDS TO BE COVERED FOR GONORRHEA AND CHLAMYDIA. WE WILL SEND HIS URINE FOR TESTING ANYWAY. GIVEN PATIENT'S PERSISTENT SYMPTOMS OVER THE PAST FEW MONTHS HE WOULD BENEFIT FROM UROLOGY EVALUATION. I CALLED [facility] AND THEY TELL ME HIS CHART IS ON DR. OROZCO'S DESK FOR REVIEW AND THEY SHOULD BE CALLING HIM SOON TO SCHEDULE AN APPOINTMENT. HE WILL GO TO THE ER WITHOUT FAIL IF HIS SYMPTOMS WORSEN. HE IS ALSO COMPLAINING OF AN ITCHY RASH ON HIS SCROTUM IN THE SHAFT OF HIS PENIS. HE FEELS THIS IS WORSENED BY HIS FREQUENT WORKOUT SCHEDULE. HE SAYS HE GETS PRETTY HOT AND SWEATY. APPEARANCE AGAIN IS NOT ENTIRELY CONSISTENT WITH TINEA HOWEVER HE STATES KETOCONAZOLE HELPED IN THE PAST SO WILL GO AHEAD AND TRY THIS AGAIN TODAY. ADVISED HIM TO KEEP COOL, CLEAN AND DRY ABLE. SHOWER RIGHT AFTER WORKING OUT AND MAKE SURE HE DOES NOT STAY WET. - Differential Dx/Diagnosis Provider Diagnosis: Urinary hesitancy, Tinea corporis Discharge ED - Sign-Out/Discharge Documenting (check all that apply): Patient Departure All imaging exams completed and their final reports reviewed: No Studies - Discharge Plan Condition: Stable Disposition: HOME Prescriptions: Ketoconazole 2 % CREAM (NF) [Nizoral 2% CREAM (NF)] 1 applic TOPICAL DAILY #1 tube Sulfamethox/Trimethoprim DS* [Bactrim DS 800/160 TAB*] 1 tab PO BID #20 tab Patient Education Materials: Tinea Corporis (ED), Rectal Pain (ED) Referrals: [facility] [Provider Group] - As Soon As Possible Emily Raphael MD [Primary Care Provider] - If Needed Additional Instructions: TAKE THE BACTRIM TWICE DAILY PRESCRIBED TO COVER FOR INFECTIOUS PROCESS. YOUR PHYSICAL EXAM TODAY WAS NOT CONSISTENT WITH AN ACUTE PROSTATITIS. URINE DIP UNREMARKABLE. WILL SEND FOR TESTING FOR GONORRHEA AND CHLAMYDIA. YOU NEED UROLOGY FOLLOW-UP. I CALLED THE [facility] OFFICE AND YOUR FILE IS ON DR. OROZCO'S DESK TO BE REVIEWED. THEY SAY THEY WILL CALL YOU SOON HE REVIEWS YOUR CHART TO SCHEDULE AN APPOINTMENT. IF YOU DO NOT HEAR FROM [facility] OR IF THEY ARE UNABLE TO SCHEDULE YOU IN A TIMELY MANNER YOU CAN TRY UROLOGY IN [place]. [facility] [address] [phone]. GO TO THE ER WITHOUT FAIL IF YOU DEVELOP WORSENING PAIN, FEVER, INABILITY TO URINATE OR ANY OTHER CONCERNING SYMPTOMS. THE RASH ON YOUR SCROTUM AND PENIS IS NOT ENTIRELY CONSISTENT WITH TINEA HOWEVER GIVEN THAT YOU HAD A GOOD RESPONSE TO AN ANTIFUNGAL CREAM IN THE PAST WILL GO AHEAD AND TRY THIS AGAIN TODAY. USE IT DAILY FOR UP TO 2 WEEKS. IF IT DOES NOT RESOLVE I RECOMMEND YOU FOLLOW-UP WITH A ANTIQUE JEWELRY REPAIRER. BE SURE TO KEEP THE AREA COOL, CLEAN AND DRY ABLE. DERMATOLOGY IN [place] DR. ROCKY TILLMAN (DOES NOT SEE PTS ON MONDAYS OR TUESDAYS. DOES NOT TAKE MEDICAID) [facility], [facility] [address]; [address] [place] [address] [facility] Dr. Krystyna Fischer Address: [address] [place] [address] DR. DONALDO OSORIO [facility] [address], [place] [address] [facility] [place] LOCATION [address] [place] [address] [address] [place] Dr[address] Kenna Cowart DERMATOLOGY IN [place] DR. COREY CAMPOS [phone] - Billing Disposition and Condition Condition: STABLE Disposition: Home
[2019-03-20 13:53] LABS: Chlamydia trachomatis NAA Negative (Negative); Neisseria gonorrhoeae (GC) NAA Negative (Negative)
== END 2019-03-19 13:16 | disposition home or self-care (01) ==
LOC: UCEAST 10:58
DX: R39.11 Hesitancy of micturition (principal); B35.4 Tinea corporis; R39.89 Other symptoms and signs involving the genitourinary system; K62.89 Other specified diseases of anus and rectum; M54.9 Dorsalgia, unspecified; J45.909 Unspecified asthma, uncomplicated; Z87.891 Personal history of nicotine dependence
CPT/HCPCS: 81003; 87491; 87591; 99212; G0463

== ENCOUNTER 2019-04-16 12:03 | Emergency (ER) | payer BC ==
--- OUTSIDE RECORDS SUMMARY | 2019-04-16 12:11 | XMS REPORT | Continuity of Care Document ---
:2000 External Reference #:[id number] Author Name Emily Raphael MD Address [address] [place] [id number] Problems Active Problems Provider Date Tenderness of periumbilical region Emily Raphael MD Onset: 02/13/2019 On examination - rebound - right iliac Emily Raphael MD Onset: 02/13/2019 Syncope and collapse Emily Raphael MD Onset: 02/13/2019 Anxiety state Emily Raphael MD Onset: 02/13/2019 Gastroesophageal reflux disease Emily Raphael MD Onset: 02/13/2019 Alcohol intake - finding Emily Raphael MD Onset: 02/13/2019 Insomnia Emily Raphael MD Onset: 03/20/2019 Social History Type Date Description Comments Sex Unknown Tobacco Use Start: Unknown End: Former Cigarette Smoker Unknown ETOH Use Denies alcohol use quit January 2019 Tobacco Use Start: Unknown End: Patient is a former quit January 2019 smoker Recreational Drug Use Denies Drug Use Recreational Drug Use Cannabis Quit cannabis January 2019 Smoking Status Reviewed: 03/20/19 Patient is a former quit January 2019 smoker Allergies, Adverse Reactions, Alerts Description No Known Drug Allergies Medications Active Medications SIG Qnty Indications Ordering Date Provider Benadryl Allergy 1-2 tablets at 60tabs G47.00 Emily Raphael 03/20/2019 25mg bedtime for MD Joe Tablets allergies and sleeplessness Prednisone take 3 tablets daily Unknown 03/16/2019 10mg On Days 1-2 then 2 Tablets daily On Days 3-4 then 1 daily On Days 5-6 Cephalexin take 1 capsule by Unknown 03/16/2019 500mg mouth every 8 hours Capsules Buspirone HCL 1 tab by mouth three 60tabs F41.9 Emily Raphael 02/21/2019 5mg times a day as MD Joe Tablets needed. start with one a day the first day, two on the second, then three times a day. Work your way up Clotrimazole/Betamet apply to affected 15gm B35.6 Emily Raphael 02/21/2019 hasone Dipropionate area twice daily for MD Joe two weeks 1-0.05% Cream Triamcinolone Dab small amount of 5gm K12.0 Emily Raphael 02/21/2019 Acetonide Dental paste on each mouth MD Joe Paste sore after meals and 0.1% Paste before bedtime. Omeprazole take one capsule by 90caps K21.9 Emily Raphael 02/21/2019 40mg mouth every day for MD Joe Capsules acid reflux- take 30 minutes before same meal every day History Medications Omeprazole 1 every day 30 30caps R10.815 Emily Raphael 02/13/2019 - 20mg minutes before MD Joe 02/21/2019 Capsules eating for heartburn Medications Administered in Office Medication SIG Qnty Indications Ordering Provider Date H1N1 Swine Flu Vaccine Unknown 01/18/2009 Injection Immunizations CPT Code Status Date Vaccine Lot # 37630 Given 02/21/2019 Influenza Virus Vaccine, Quadrivalent, Split, 24PP4 Preservative Free 81933 Given 12/26/2018 Influenza Virus Vaccine, Quadrivalent, Split, Preservative Free 49719 Given 12/26/2018 Gardasil 9 HPV vaccine; Nonavalent [address] [place] [address] Given 12/26/2017 Influenza Virus Vaccine, Quadrivalent, Split, Preservative Free 91404 Given 11/28/2016 Influenza Virus Vaccine, Quadrivalent, Split, Preservative Free 29593 Given 01/24/2016 Menomune Meningococcal Immunization 27400 Given 01/24/2016 Influenza Virus Vaccine, Quadrivalent, Split, Preservative Free 32625 Given 01/24/2016 Gardasil 9 HPV vaccine; Nonavalent 3 [place] [address] Given 01/21/2015 flu mist - live influenza virus vaccine for intranasal use 89903 Given 04/16/2013 Adacel or Boostrix, TDaP 22144 Given 09/29/2011 Varicella (Chicken Pox) Immunization 62955 Given 09/29/2011 Adacel or Boostrix, TDaP 97466 Given 11/23/2007 Flu, Split Virus 3Yrs 13228 Given 08/23/2007 Menactra Menningitis Vaccine 26586 Given 08/23/2007 Hep A, Ped/Adolscent, 2 Dose 64853 Given 07/12/2006 Hep A, Ped/Adolscent, 2 Dose 18256 Given 01/12/2006 Flu, Split Virus 3Yrs 54079 Given 03/03/2005 Flu, Split Virus 3Yrs 97366 Given 10/12/2004 Dtap Immunization (Tripedia) (Infanrix) 55340 Given 10/12/2004 MMR Virus Immunization 06742 Given 10/12/2004 Poliomyelitis Immunization 85997 Given 01/18/2004 Flu, Split Virus 3Yrs 30432 Given 02/09/2003 Flu, Split Virus 3Yrs 08242 Given 12/30/2002 Flu, Split Virus 3Yrs 06135 Given 10/22/2001 Hepb-Hib 37364 Given 10/22/2001 Dtap Immunization (Tripedia) (Infanrix) 52854 Given 03/05/2001 Varicella (Chicken Pox) Immunization 08121 Given 03/05/2001 Poliomyelitis Immunization 87141 Given 03/05/2001 MMR Virus Immunization 63185 Given 08/03/2000 Prevnar (Pneumococcal Conjugate) 52527 Given 08/03/2000 Dtap Immunization (Tripedia) (Infanrix) 40103 Given 04/24/2000 Hepb-Hib 60130 Given 04/24/2000 Poliomyelitis Immunization 83407 Given 04/24/2000 Dtap Immunization (Tripedia) (Infanrix) 08211 Given 04/24/2000 Prevnar (Pneumococcal Conjugate) 90428 Given 01/02/2000 Hepb-Hib 70324 Given 01/02/2000 Poliomyelitis Immunization 71709 Given 01/02/2000 Dtap Immunization (Tripedia) (Infanrix) 63367 Given 01/02/2000 Prevnar (Pneumococcal Conjugate) Vital Signs Date Vital Result Comment 03/20/2019 11:29am BP Systolic 118 mmHg BP Diastolic 68 mmHg Weight 169.00 lb 03/13/2019 9:22am BP Systolic 114 mmHg BP Diastolic 70 mmHg Body Temperature 98.1 F Results Test Acquired Date Facility Test Result H/L Range Note Poc Urinalysis 03/19/2019 [facility] Poc Glucose, NEGATIVE Negative [phone] Urine Poc Bilirubin, Urine NEGATIVE Negative Poc Ketone, Urine NEGATIVE Negative Poc Specific [place], Urine 1.025 Normal 1.010-1.030 Poc Blood, Urine NEGATIVE Negative 1 Poc pH, Urine 6.5 Normal 5-9 Poc Protein, Urine NEGATIVE Negative Poc Urobilinogen, Urine 0.2 Negative Poc Nitrite, Urine NEGATIVE Negative Poc Leukocytes, Urine NEGATIVE Negative Poc Color, Urine YELLOW Poc Clarity, Urine CLEAR Poc Urinalysis 03/16/2019 [facility] Poc Glucose, Urine NEGATIVE Negative [phone] Poc Bilirubin, Urine NEGATIVE Negative Poc Ketone, Urine NEGATIVE Negative Poc Specific [place], Urine 1.020 Normal 1.010-1.030 Poc Blood, Urine NEGATIVE Negative 2 Poc pH, Urine 7.0 Normal 5-9 Poc Protein, Urine NEGATIVE Negative Poc Urobilinogen, Urine 0.2 Negative Poc Nitrite, Urine NEGATIVE Negative Poc Leukocytes, Urine NEGATIVE Negative Poc Color, Urine YELLOW Poc Clarity, Urine CLEAR GC/Chlamydia 03/16/2019 [facility] Disclaimer (SEE NOTE) 3, 4 Amplified Rna [phone] Chlamydia trachomatis Leeann Negative Negative Neisseria gonorrhoeae (GC) Leeann Negative Negative Laboratory test 03/16/2019 [facility] Culture Throat SEE RESULT 5 finding [phone] BELOW Laboratory test 03/16/2019 [facility] Rapid Strep Negative Negative 6 finding [phone] Molecular Laboratory test 03/13/2019 In House Culture Throat negative finding Rapid Screen Culture Throat negative GC/Chlamydia 02/27/2019 [facility] Disclaimer (SEE NOTE) 7, 8 Amplified Rna [phone] Chlamydia trachomatis Leeann Negative Negative Neisseria gonorrhoeae (GC) Leeann Negative Negative Urine Culture And 02/27/2019 [facility] Urine Culture SEE RESULT 9 Sensitivities [phone] BELOW Poc Urinalysis 02/27/2019 [facility] Poc Glucose, NEGATIVE Negative [phone] Urine Poc Bilirubin, Urine NEGATIVE Negative Poc Ketone, Urine NEGATIVE Negative Poc Specific [place], Urine 1.025 Normal 1.010-1.030 Poc Blood, Urine NEGATIVE Negative 10 Poc pH, Urine 5.5 Normal 5-9 Poc Protein, Urine NEGATIVE Negative Poc Urobilinogen, Urine 0.2 Negative Poc Nitrite, Urine POSITIVE Negative Poc Leukocytes, Urine NEGATIVE Negative Poc Color, Urine YELLOW Poc Clarity, Urine CLEAR Rapid Influenza A 02/16/2019 [facility] Influenza A NEGATIVE Negative & B Molecular [phone] Molecular Influenza B Molecular NEGATIVE Negative 11 CBC Auto Diff 02/13/2019 [facility] White Blood 4.9 10^3/uL Normal 3.5-10.8 [phone] Count Red Blood Count 5.35 10^6/uL Normal [...] Cells % 0.1 Comp Metabolic Panel 02/13/2019 [facility] Sodium 139 mmol/L Normal 135-145 [phone] Potassium 4.3 mmol/L Normal 3.5-5.0 Chloride 105 [...] Egfr Non- 98.5 >60 Egfr 119.2 >60 12 Laboratory test 02/13/2019 [facility] TSH (Thyroid 1.00 mcIU/mL Normal 0.34-5.60 finding [phone] Stim Horm) Vitamin D Total 25(Oh) 24.6 ng/mL Normal 20-50 13 Vitamin B12 312 pg/mL Normal 180-914 14 1 Thermostatic Controls Supervisor: [id number] 2 Thermostatic Controls Supervisor: [id number] 3 [id number] 4 As with all diagnostic procedures, the laboratory results obtained should be used in conjunction with other clinical information available to the physician, including confirmation by another method, as applicable. 5 SEE RESULT BELOW Name: FRANKYRUTH MESABALDO Stuart : [address]: George Sun MD Acct: [id number] Unit: [id number] AGE: 18 Location: [facility] Re03/16/19 SEX: M Status: DEP ER SPEC: [id number] CARLOS: 03/16/19-8 [facility] DR: Julissa Aldrich NP REQ: [id number] RECD: 03/16/19-142 STATUS: COMP [facility] DR: Emily Sun MD _ SOURCE: THROAT SPDESC: ORDERED: Throat Culture COMMENTS: [id number] Procedure Result Reported Site Throat Culture Final 03/18/19- 941 ML Organism 1 NORMAL CHERI Quantity 2+ Throat cultures are clinically indicated to detect the presence of group A strep, arcanobacterium and yeast. In certain cases, predominating organisms will be reported. * ML - Main Lab . END OF REPORT DEPARTMENT OF PATHOLOGY, [address] [place] [address] Marcus Hernandez M.D. Director [facility] # [id number] 6 Thermostatic Controls Supervisor: [id number] Suboptimal collection technique may reduce sensitivity of test. Refer to the [facility] Test Catalog for collection information: [email or web address] As with all diagnostic procedures, the laboratory results obtained should be used in conjunction with other clinical information available to the physician, including confirmation by another method, as applicable. 7 [id number] 8 As with all diagnostic procedures, the laboratory results obtained should be used in conjunction with other clinical information available to the physician, including confirmation by another method, as applicable. 9 SEE RESULT BELOW Name: LUIS ALBERTO HSU : [address]: Azael Floyd MD Acct: [id number] Unit: [id number] AGE: 18 Location: [facility] Re02/27/19 SEX: M Status: DEP ER SPEC: [id number] CARLOS: 02/27/19-[address]: Azael Floyd MD REQ: [id number] RECD: 02/27/19-1623 STATUS: MERARI CISNEROS DR: Emily Raphael MD _ SOURCE: URINE SPDESC: ORDERED: Urine Culture Procedure Result Reported Site Urine Culture Final 02/28/19- 1503 ML No Growth (<1,000 CFU/mL) * ML - Main Lab . END OF REPORT DEPARTMENT OF PATHOLOGY, [address] [place] [address] Marcus Hernandez M[address]D. Director [facility] # [id number] 10 Thermostatic Controls Supervisor: [id number] Thermostatic Controls Supervisor: [id number] Because ethnic data is not always readily [...] 15-29 5 Kidney failure <15 (or dialysis) 13 Total 25-Hydroxyvitamin D2 and D3 (25-OH-VitD) <10 ng/mL (severe deficiency) 10-19 ng/mL (mild to moderate deficiency) 20-50 ng/mL (optimum levels) 51-80 ng/mL (increased risk of hypercalciuria) >80 ng/mL (toxicity possible) 14 Normal Range 180 to 914 Indeterminate Range 145 to 180 Deficient Range <145 Procedures Description No Information Available Medical Devices Description No Information Available Encounters Type Date Location Provider Dx Diagnosis Office Visit 03/20/2019 Main Office Emily Raphael F41.9 Anxiety disorder, 11:30a unspecified R10.815 Periumbilic abdominal tenderness G47.00 Insomnia, unspecified H92.09 Otalgia, unspecified ear H53.8 Other visual disturbances Office Visit 03/13/2019 9:45a Main Office Emily Raphael F41.9 Anxiety disorder, unspecified J02.9 Acute pharyngitis, unspecified N48.89 Other specified disorders of penis Office Visit 02/21/2019 9:15a Main Office Emily Raphael K21.9 Gastro- esophageal MD Joe reflux disease without esophagitis F10.10 Alcohol abuse, uncomplicated F41.9 Anxiety disorder, unspecified B35.6 Tinea cruris K12.0 Recurrent oral aphthae Z23 Encounter for immunization F17.213 Nicotine dependence, cigarettes, with withdrawal Office Visit 02/13/2019 10:30a Main Office Emily Raphael K21.9 Gastro- esophageal MD Joe reflux disease without esophagitis R10.815 Periumbilic abdominal tenderness R10.813 Right lower quadrant abdominal tenderness R55 Syncope and collapse F41.9 Anxiety disorder, unspecified F10.10 Alcohol abuse, uncomplicated Z68.24 Body mass index (BMI) 24.0-24.9, adult Assessments Date Code Description Provider 03/20/2019 F41.9 Anxiety disorder, unspecified Emily Raphael MD 03/20/2019 R10.815 Periumbilic abdominal tenderness Emily Raphael MD 03/20/2019 G47.00 Insomnia, unspecified Emily Raphael MD 03/20/2019 H92.09 Otalgia, unspecified ear Emily Raphael MD 03/20/2019 H53.8 Other visual disturbances Emily Raphael MD 03/13/2019 F41.9 Anxiety disorder, unspecified Emily Raphael MD 03/13/2019 J02.9 Acute pharyngitis, unspecified Emily Raphael MD 03/13/2019 N48.89 Other specified disorders of penis Emily Raphael MD 02/21/2019 K21.9 Gastro-esophageal reflux disease without Emily Raphael MD esophagitis 02/21/2019 F10.10 Alcohol abuse, uncomplicated Emily Raphael MD 02/21/2019 F41.9 Anxiety disorder, unspecified Emily Raphael MD 02/21/2019 B35.6 Tinea nickos Emily Raphael MD 02/21/2019 K12.0 Recurrent oral [...] MD 02/13/2019 F10.10 Alcohol abuse, uncomplicated Emily Rpahael MD 02/13/2019 Z68.24 Body mass index (BMI) 24.0-24.9, adult Emily Raphael MD Plan of Treatment Future Appointment(s):04/25/2019 9:30 am - Emily Raphael MD at Main [id number] - Emily Raphael MDF41.9 Anxiety disorder, unspecifiedComments: continue buspirone as neededFollow up:f/u one gshyoR16.815 Periumbilic abdominal tendernessComments:will refer once more to GI if worsens, continue omeprazole.G47.00 Insomnia, unspecifiedNew Medication:Benadryl Allergy 25 mg - 1 -2 tablets at bedtime for allergies and sleeplessnessComments:benadryl good for slight postnasal drip and if taken at bedtime can help with sleep. Can stop melatonin. advised to try to catch up on sleep on vacation. Try to get a day job.H92.09 Otalgia, unspecified earComments:benadryl may help with mild ear painH53.8 Other visual disturbancesFollow up:you may make your own appointment to see an eye doctor. Functional Status Description No Information Available Mental Status Description No Information Available Referrals Refer to Dr Reason for Referral Status Appt Date [facility] chronic GERD, nausea, diarrhea, abdominal Sent 00/00 /0000 pain Consult and Treat [facility] [place] [address] [phone]
[2019-04-16 12:21] VITALS: BP 102/52
[2019-04-16 13:12] LABS: Influenza A Molecular Negative (Negative); Influenza B Molecular Negative (Negative)
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
== END 2019-04-16 14:14 | disposition home or self-care (01) ==
LOC: UCEAST 12:03
DX: B34.9 Viral infection, unspecified (principal); R09.82 Postnasal drip; J02.9 Acute pharyngitis, unspecified; R09.81 Nasal congestion; R29.898 Other symptoms and signs involving the musculoskeletal system; R52 Pain, unspecified; H92.09 Otalgia, unspecified ear; R09.89 Other specified symptoms and signs involving the circulatory and respiratory systems; H73.891 Other specified disorders of tympanic membrane, right ear; Z87.891 Personal history of nicotine dependence
CPT/HCPCS: 87651; 99211; G0463

== ENCOUNTER 2019-04-23 17:55 | Emergency (ER) | payer BC ==
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
[2019-04-23 18:38] VITALS: BP 142/75
== END 2019-04-23 18:50 | disposition home or self-care (01) ==
LOC: UCEAST 17:55
DX: J02.9 Acute pharyngitis, unspecified (principal); K21.9 Gastro-esophageal reflux disease without esophagitis; Z79.899 Other long term (current) drug therapy; Z87.891 Personal history of nicotine dependence
CPT/HCPCS: 87651; 99212; G0463

== ENCOUNTER 2019-05-07 14:23 | Emergency (ER) | payer BC ==
[2019-05-07 14:32] VITALS: BP 141/78
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
== END 2019-05-07 15:01 | disposition home or self-care (01) ==
LOC: UCCORT 14:23
DX: J30.9 Allergic rhinitis, unspecified (principal); F41.9 Anxiety disorder, unspecified; E11.9 Type 2 diabetes mellitus without complications; Z87.891 Personal history of nicotine dependence
CPT/HCPCS: 99212; G0463

== ENCOUNTER 2019-05-12 11:15 | Emergency (ER) | payer BC, MEDICAID, OTHER ==
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
[2019-05-12 12:45] VITALS: BP 143/83
== END 2019-05-12 13:05 | disposition home or self-care (01) ==
LOC: UCCORT 11:15
DX: R07.89 Other chest pain (principal); Z87.891 Personal history of nicotine dependence
CPT/HCPCS: 71046; 99211; G0463